=== PATIENT | male | born 2000 | race African-American/Black ===

== ENCOUNTER 2022-12-09 01:53 | Outpatient (CLI) | payer MEDICAID, SELFPAY | END 2022-12-09 01:54 | disposition home or self-care (01) | LOC: AMB 12-11 11:59 | PROVIDERS: Visit Provider Family Medicine | DX: F10.129 Alcohol abuse with intoxication, unspecified (principal) | CPT/HCPCS: A0425; A0429 ==

== ENCOUNTER 2022-12-09 02:14 | Emergency (ER) | payer MEDICAID, SELFPAY ==
[2022-12-09 02:20] VITALS: BP 112/69; PULSE 75; RESP 20; TEMP 36.5; O2SAT 99; BMI 17.2
--- NOTE | 2022-12-09 02:38 | ED.NURSE ---
MD in to assess patient
--- NOTE | 2022-12-09 03:06 | ED.NURSE ---
Patient's cousin, Ru, is here to cloth picker the patient, who continues to be alert and ambulatory. Patient is discharged to home with family.
--- NOTE | 2022-12-09 04:45 | ED.GENADULT ---
HPI - General Adult General Stated complaint: overdose Time Seen by Provider: 12/09/22 04:45 History of Present Illness HPI narrative: Documentation note on bennie, rowanteresakatty?created in EMR down time 22-year-old male presents the emergency department after calling on 911. He reports that he was feeling very drunk and intoxicated and had no one at his hotel to take care of him. He reports that he is from [place], he is in town for a constitution party with friends. He went back to the hotel without his friends early because he was feeling overly intoxicated. He admits that he was drinking on an empty stomach. He reports that his last drink was around 12:30 a.m.. He came out of his hotel room and asked the hotel staff to call 911 because he was feeling unwell. When I asked further questions, he states that he was feeling nauseated and a little anxious and did not want to be alone. He does not feel unsafe. He is not having any suicidal or homicidal thoughts. No one is threatening him, he has not been any type of fight or altercation. He reports no injury, illness or fever. He has not vomited. He has no long-term medical problems like seizure disorder, diabetes or immunosuppression of any kind. EMS reports that he can not ambulate on to their cot with no difficulty, could answer questions clearly. He denies any use of other intoxicating substances or drugs besides the alcohol tonight. Nursing team observed him ambulating independently in the room with GCS of 15.? He reports that his past medical history is benign, denies any long-term health problems. Nonsmoker, drinks alcohol only socially with no drug use.? ROS is notable for the generalized symptoms as described above, otherwise dEnies times 12 systems.? ? On exam, blood pressure 112 over 69, heart rate 75 O2 sats 99% on room air. temp 97.7?. Height is 6 ft 5 with a weight of 145 lb. Generally he is awake alert, interactive and follows commands easily. Good insight. Mildly intoxicated but certainly protecting his airway with no significant neurological deficits. The head appears atraumatic the facial bones appear normal. The eyes with normal-appearing pupils and conjunctiva, normal visual tracking and gaze. Oropharynx with acyanotic lips, moist membranes. No signs of dental or tongue injuries. The neck with normal range of motion, supple with no lymphadenopathy. Heart with regular rate rhythm, no murmurs rubs or gallops lungs with good air entry in all lung gardner no wheezes rales or rhonchi. Abdomen is soft, nondistended with no mass. The extremities show no signs of injury or trauma, freely moving in all directions with no obvious deficits. Neurologically with no tremor, normal speech. GCS is 15 with no focal deficits. Mood behavior and affect are clinically appropriate for medical decision making. Skin is warm, well perfused with normal capillary refill and no signs of trauma or injury.? ? ED course: Patient is mildly intoxicated, not exhibiting any suicidal or homicidal ideation. He is mildly nauseated from alcohol intoxication but is not in need of any medical intervention. He does need a responsible adult to observe him and bring him back to the ED if his condition worsens. We are getting hold of his family to come get him. He may be discharged with no blood work or interventions at this time.? ?? Discharge Plan Discharge Clinical Impression: Alcohol intoxication Patient Disposition: Home w/ Parent or Adult Condition: Stable Instructions: Alcohol Intoxication (ED) Additional Instructions: You are mildly intoxicated with alcohol but are not exhibiting any signs of extreme medical danger at this time. This is good news. Your likely to be nauseated, have some mild stomach upset, headache and fatigue for the next 24 hours. You do not have any room work restrictions after 9:00 a.m.. Drink plenty of water today. It is okay to use Tylenol and/or ibuprofen for headache or muscle aches. If your drinking of alcohol is a problem, please seek resources from her primary care provider or local county intervention services. Activity Level: No Restrictions Discharge Diet: Regular Stand Alone Forms: [employer] Info Instructions
== END 2022-12-09 04:45 | disposition home or self-care (01) ==
LOC: ED 05:18
PROVIDERS: Emergency Provider Family Medicine
DX: F10.129 Alcohol abuse with intoxication, unspecified (principal)
CPT/HCPCS: 99282